=== PATIENT | male | born 1995 | race Caucasian/White ===

== ENCOUNTER → 2018-09-22 12:17 | Outpatient (CLI) | payer OTHER, SELFPAY ==
--- NOTE | 2018-09-22 12:25 | RAD_ITS ---
STUDY: X-RAY - RIGHT WRIST REASON FOR EXAM: Male, 23 years old. Injury TECHNIQUE: 3 view(s) of the wrist were obtained. COMPARISON: None. FINDINGS: There is no evidence of fracture or dislocation. There are no significant degenerative changes. There are no radiodense foreign bodies. RAD/Wrist min 3 Views IMPRESSION: No fracture or dislocation. Electronically Signed: Sd [place], at 17:04 EDT Tel , Service support ,
--- NOTE | 2018-09-22 12:26 | RAD_ITS ---
STUDY: X-RAY - RIGHT RADIUS AND ULNA REASON FOR EXAM: Male, 23 years old. Pain TECHNIQUE: 2 view(s) of the forearm. COMPARISON: None. FINDINGS: There is no evidence of fracture or dislocation. There are no significant degenerative changes. There are no radiodense foreign bodies. RAD/Forearm 2 Views IMPRESSION: No fracture or dislocation. Electronically Signed: Sd River, at 17:03 EDT Tel , Service support ,
--- NOTE | 2018-09-22 12:26 | RAD_ITS ---
STUDY: X-RAY - RIGHT HAND REASON FOR EXAM: Male, 23 years old. Injury TECHNIQUE: 3 view(s) of the hand. COMPARISON: None. FINDINGS: There is no evidence of fracture or dislocation. There are no significant degenerative changes. There are no radiodense foreign bodies. RAD/Hand Min 3 Views IMPRESSION: No fracture or dislocation. Electronically Signed: Sd River, at 17:05 EDT Tel , Service support ,
== END ==
PROVIDERS: Family Provider Family Medicine; PCP Family Medicine; Referring Provider Nurse Practitioner Family; Visit Provider Nurse Practitioner Family
DX: S69.91XA Unspecified injury of right wrist, hand and finger(s), initial encounter (principal); X58.XXXA Exposure to other specified factors, initial encounter
CPT/HCPCS: 73090; 73110; 73130

== ENCOUNTER → 2020-12-28 10:26 | Outpatient (CLI) | payer OTHER, SELFPAY | PROVIDERS: PCP Family Medicine; Referring Provider Physician Assistant; Visit Provider Physician Assistant | DX: U07.1 COVID-19 (principal) | CPT/HCPCS: 87635; U0005; U0003 ==

== ENCOUNTER 2022-04-20 15:22 | Emergency (ER) | payer OTHER, SELFPAY ==
[2022-04-20 15:24] VITALS: BP 161/93; PULSE 84; RESP 16; TEMP 36.6; O2SAT 99; BMI 32.0
[2022-04-20 16:07] LABS: Absolute Lymphocyte Count 2.03 X10^3/uL (0.83-4.51); Basophil# 0.06 X10^3/uL; Basophil% 0.9 % (0-1); Eosinophil# 0.17 X10^3/uL; Eosinophils% 2.5 % (0-5); Hematocrit 46.2 % (40-54); Hemoglobin 16.5 g/dL (13.0-16.5); Lymphocyte # 2.03 X10^3/ul (0.83-4.51); Lymphocyte % 30.2 % (19-41); Mean Corp Hgb Conc 35.7 g/dL (32-36); Mean Corpuscular Hgb 31.7 pg (27.0-32.0); Mean Corpuscular Volume 88.8 fL (80-94); Mean Platelet Vol. 9.1 fl (6.2-12.0); Monocyte# 0.48 X10^3/uL; Monocyte% 7.1 % (0-10); NRBC Flagged by Analyzer 0 % (0-5); Neutrophil # 3.95 X10^3/uL (2.7-7.7); Neutrophil % 58.9 % (47-70); Platelet Count 183 K/mm3 (150-450); RBC Distribution Width CV 12.1 % (11.6-14.6); RBC Distribution Width SD 39.2 fl (35.1-43.9); White Blood Count 6.7 K/mm3 (4.4-11.0)
[2022-04-20 16:27] LABS: Anion Gap 8 (5-15); BUN 16 mg/dL (7-18); BUN/Creat Ratio 12.8 RATIO (10-20); Calcium,Total 9.5 mg/dL (8.5-10.1); Chloride 103 mmol/L (98-107); Creatinine, Serum 1.25 mg/dL (0.70-1.30); EST Glomerular Filtration Rate 73 mL/min (>60); Est Glom Filt Rate - Afr Amer 88 mL/min (>60); Estimated Creatinine Clearance 90.84 ml/min; Glucose 98 mg/dL (74-106); Sodium Level 138 mmol/L (136-145)
[2022-04-20] MEDS: Meclizine HCl 25 MG Tablet PO (16:39)
[2022-04-20 16:42] VITALS: BP 142/70; BP 144/81; BP 147/83; PULSE 78; PULSE 82; PULSE 90
[2022-04-20 16:49] LABS: AST(SGOT) 23 U/L (15-37); Alanine Aminotransfer ALT/SGPT 42 U/L (16-61); Albumin, Serum 4.3 g/dL (3.2-5.0); Alkaline Phosphatase 64 U/L (45-117); Bilirubin, Direct 0.14 mg/dL (0.00-0.30); Globulin 3.4 g/dL (2.2-4.2); Lipase 101 U/L (73-393); Protein, Total 7.7 g/dL (6.4-8.2)
[2022-04-20 17:31] LABS: Bacteria 0 SEEN /hpf (None Seen); Mucous, Urine 0 SEEN /hpf (<or=2+); Red Blood Cells-Urine 0 SEEN /hpf (0-5); Squamous Epithelial Cells - UA 0 SEEN /hpf (0-5); White Blood Cells 0 SEEN /hpf (0-5)
[2022-04-20 17:45] LABS: Color, Urine Yellow (Yellow); Glucose, Dipstick Normal (Normal); Ketone-Dipstick Negative (Negative); Leukocyte Esterase-Dipstick Negative /ul (Negative); Nitrite-Dipstick Negative (Negative); Occult Blood-Urine Negative /ul (Negative); Protein-Dipstick Negative (Negative); Specific Gravity, Urine 1.005 (1.002-1.030); Urine Bilirubin Dipstick Negative (Negative); Urine Clarity Clear (Clear); Urine Urobilinogen Normal (Normal)
--- NOTE | 2022-04-20 19:52 | EDS_ITS ---
HPI HPI - GI History of Present Illness Chief Complaint: Abd Pain Informant: patient Abdominal Pain/Flank Pain Onset: Today Context: Gradual Onset Timing: Intermittent Quality: Dull Location: Epigastric Worsened by: Nothing Relieved by: Nothing Nausea/Vomiting/Emesis GI Symptom: Negative for Nausea or Vomiting Diarrhea/Melena/Hematochezia GI Symptom: Negative for Diarrhea, Melena or Hematochezia Associated Symptoms Associated Symptoms: Negative for Dysuria, Frequency or Hematuria Narrative Narrative: Patient presents with epigastric abdominal pain and dizziness. Patient states this has gradually gotten worse throughout the day today. Patient states his pain is mainly over the epigastric area. Patient describes it as dull. Patient states it comes and goes. Patient denies any nausea or vomiting. Patient denies any diarrhea, melena, or hematochezia. Patient states he feels dizzy. P atient describes this as a fogginess and lightheadedness. Patient states this seems to be worse after eating. Patient admits to some sinus pressure. Patient denies any fevers or chills. Patient admits to a mild headache and some neck pain. Patient admits to a mild sore throat. Patient denies any ear pain or tinnitus. PFSH PFSH Medical History no medical history no medical history Home Medications meclizine 25 mg tablet 25 mg PO 4X/DAY PRN PRN Dizziness #20 tabs 04/20/22 [Rx Last Taken Unknown] Allergy/AdvReac Type Severity Reaction Status Date / Time No Known Allergies Allergy Verified 04/20/22 16:23 Family History no significant family his Surgical History no surgical history no surgical history Social History Smoking Status: Current every day smoker tobacco type: smokeless tobacco ROS ROS ED Constitutional Constitutional ED: Denies chills or fever(s) Eyes Eyes: Denies blurry vision or change in vision ENT ENT ED: Reports sore throat; Denies rhinorrhea Cardiovascular Cardiovascular: Denies chest pain or palpitations Respiratory/Chest Respiratory/Chest: Denies cough or dyspnea Gastrointestinal Gastrointestinal: Denies nausea or vomiting Genitourinary Genitourinary ED: Denies dysuria or hematuria Musculoskeletal Musculoskeletal: Reports neck pain; Denies back pain Integumentary Denies abscess or rash Neurologic Neurologic: Reports headache(s); Denies weakness Allergic/Immunologic Allergic/Immunologic ED: Denies mouth swelling or urticaria EXAM Physical Exam Const Vital Signs: 04/20/22 15:24 04/20/22 16:42 Temperature 98 F Temperature Source Temporal Pulse Rate 84 Pulse Rate [Lying] 78 Pulse Rate [Sitting (for 1 minute prior to obtaining)] 82 Pulse Rate [Standing (for 1 minute prior to obtaining)] 90 Respiratory Rate 16 Blood Pressure 161/93 H Blood Pressure [Lying] 142/70 H Blood Pressure [Sitting (for 1 minute prior to obtaining)] 144/81 H Blood Pressure [Standing (for 1 minute prior to obtaining)] 147/83 H Blood Pressure Mean 115 Blood Pressure Mean [Lying] 94 Blood Pressure Mean [Sitting (for 1 minute prior to obtaining)] 102 Blood Pressure Mean [Standing (for 1 minute prior to obtaining)] 104 Pulse Ox 99 Oxygen Delivery Method Room Air Positive well nourished and well developed General Appearance ED: well developed HEENT Reports moist mucous membranes Neck supple and no JVD Resp normal respiratory effort and clear to auscultation bilaterally Cardio regular rate, regular rhythm and no murmurs GI normal to inspection, nondistended, normoactive bowel sounds Palpation: soft and tender epigastric (Mild); Negative for guarding or rebound tenderness present Extremity normal to inspection General Extremety ED: Negative for edema or tenderness General Extremity: Negative for edema Neuro oriented x3, CN's II-XII intact bilaterally and no sensory deficits noted Sensorium / Orientation: alert Motor Exam: strength 5/5 throughout Psych mental status grossly normal Skin no rashes or lesions noted MDM MDM MDM Narrative Medical decision making narrative: Differential diagnosis includes gastritis, pancreatitis, viral illness, dehydration, ureteral calculus, pyelonephritis, and electrolyte abnormality. CBC will be obtained to assess for leukocytosis and anemia. Basic metabolic profile will be obtained to assess for and electrolyte abnormality. Hepatic profile will be obtained to assess for hepatic function. Lipase will be obtained to assess for pancreatitis. Urinalysis will be obtained to assess for hematuria and urinary tract infection. Lab Data Attestation: I reviewed the patient's lab results. Lab results narrative: CBC was reviewed and was within normal limits. Basic metabolic profile was reviewed and was within normal limits. Hepatic profile was reviewed and was within normal limits. Lipase was reviewed and was within normal limits. Urinalysis was reviewed and was within normal limits. Labs: Laboratory Results - last 24 hr 04/20/22 04/20/22 04/20/22 15:45 15:45 15:45 WBC 6.7 RBC 5.20 Hgb 16.5 Hct 46.2 MCV 88.8 MCH 31.7 MCHC 35.7 RDW Std Deviation 39.2 RDW Coeff of Kim 12.1 Plt Count 183 MPV 9.1 Immature Gran % (Auto) 0.400 Neut % (Auto) 58.9 Lymph % (Auto) 30.2 [place] % (Auto) 7.1 Eos % (Auto) 2.5 Baso % (Auto) 0.9 Absolute Neuts (auto) 4.0 Absolute Lymphs (auto) 2.03 Nucleated RBC % 0 Sodium 138 Potassium 4.0 Chloride 103 Carbon Dioxide 27.0 Anion Gap 8 BUN 16 Creatinine 1.25 Estim Creat Clear Calc 90.84 Est GFR (MDRD) Af Amer 88 Est GFR (MDRD) Non-Af 73 BUN/Creatinine Ratio 12.8 Glucose 98 Calcium 9.5 Total Bilirubin 0.50 Direct Bilirubin 0.14 AST 23 ALT 42 Alkaline Phosphatase 64 Total Protein 7.7 Albumin 4.3 Globulin 3.4 Lipase 101 Urine Color Urine Clarity Urine pH Ur Specific [place] Urine Protein Urine Glucose (UA) Urine Ketones Urine Occult Blood Urine Nitrite Urine Bilirubin Urine Urobilinogen Ur Leukocyte Esterase Urine RBC Urine WBC Ur Squamous Epith Cells Urine Bacteria Urine Mucus 04/20/22 17:25 WBC RBC Hgb Hct MCV MCH MCHC RDW Std Deviation RDW Coeff of Kim Plt Count MPV Immature Gran % (Auto) Neut % (Auto) Lymph % (Auto) [place] % (Auto) Eos % (Auto) Baso % (Auto) Absolute Neuts (auto) Absolute Lymphs (auto) Nucleated RBC % Sodium Potassium Chloride Carbon Dioxide Anion Gap BUN Creatinine Estim Creat Clear Calc Est GFR (MDRD) Af Amer Est GFR (MDRD) Non-Af BUN/Creatinine Ratio Glucose Calcium Total Bilirubin Direct Bilirubin AST ALT Alkaline Phosphatase Total Protein Albumin Globulin Lipase Urine Color Yellow Urine Clarity Clear Urine pH 7.0 Ur Specific [place] 1.005 Urine Protein Negative Urine Glucose (UA) Normal Urine Ketones Negative Urine Occult Blood Negative Urine Nitrite Negative Urine Bilirubin Negative Urine Urobilinogen Normal Ur Leukocyte Esterase Negative Urine RBC 0 SEEN Urine WBC 0 SEEN Ur Squamous Epith Cells 0 SEEN Urine Bacteria 0 SEEN Urine Mucus 0 SEEN Treatment and Re-Evaluation :: Patient was given a dose of meclizine here. Patient is feeling better on reevaluation. Patient was advised of his findings. Patient was given a prescription for meclizine to take as needed for dizziness. Patient was instructed to follow-up with his primary care physician in 5 to 7 days. Patient understood and was agreeable with the plan. All questions were answered. Discharge Plan Triage Chief Complaint: Abd Pain Other Complaint: Chest Other Dizziness ED Provider: Te Sharp Dx/Rx/DC Orders Clinical Impression: Dizziness, nonspecific, Epigastric abdominal pain Instructions: ED Dizziness, Uncertain Cause, ED Abdominal Pain Unkn Cause Male... Prescriptions: New meclizine [meclizine] 25 mg tablet 25 mg PO 4X/DAY PRN PRN (Reason: Dizziness) Qty: 20 0RF Primary Care Provider: Raghav Richard Referrals: Raghav Richard MD [Primary Care Provider] - 5-7 Days Disposition Disposition: Home, Self Care
[2022-04-20 20:12] VITALS: BP 120/44; PULSE 74; RESP 15; O2SAT 98
== END 2022-04-20 20:13 | disposition home or self-care (01) ==
PROVIDERS: Emergency Provider Emergency Medicine; PCP Family Medicine; Visit Provider Emergency Medicine
DX: R42 Dizziness and giddiness (principal); R10.13 Epigastric pain; F17.220 Nicotine dependence, chewing tobacco, uncomplicated
CPT/HCPCS: 80048; 80076; 81001; 83690; 85025; 99284; A4216

== ENCOUNTER 2022-05-17 14:02 | Emergency (ER) | payer OTHER, SELFPAY ==
[2022-05-17 14:02] VITALS: BP 149/88; PULSE 82; RESP 18; TEMP 36.8; O2SAT 100; BMI 32.1
--- NOTE | 2022-05-17 14:15 | CT_ITS ---
STUDY: CT BRAIN WITHOUT CONTRAST REASON FOR EXAM: Male, 26 years old. dizziness, headache TECHNIQUE: Transaxial CT imaging of the brain was performed without administration of intravenous contrast material. Individualized dose optimization techniques were used for this CT. COMPARISON: None FINDINGS: Normal calvarium. Normal soft tissues. Normal size ventricles and extra-axial spaces for the patient''s age. Normal white matter tracts of the cerebral hemispheres. Normal basal ganglia and thalami. Normal brainstem. Normal cerebellum. There is no intracranial hemorrhage. There are no findings of an acute ischemic infarction. There is sinus disease. ASPECTS 10 CT/Brain/Head without Contrast IMPRESSION: There are no acute intracranial findings. Electronically Signed: Talha Eddy MD at 16:20 EDT ,
--- NOTE | 2022-05-17 14:15 | EKG12_ITS ---
Test Reason : DIZZY Blood Pressure : / mmHG Vent. Rate : 077 BPM Atrial Rate : 077 BPM P-R Int : 130 ms QRS Dur : 084 ms QT Int : 362 ms P-R-T Axes : 054 058 036 degrees QTc Int : 409 ms Normal sinus rhythm Normal ECG Confirmed by RICHIE HERRERA, MANUEL ([id number]), department editor MARIANO PINTO ([id number]) on 05/21/2022 10:48:39 AM Referred By: PATRICK Confirmed By:JUAN CARLOS QUIROZ MD
--- NOTE | 2022-05-17 14:16 | US_ITS ---
STUDY: ABDOMINAL ULTRASOUND - RIGHT UPPER QUADRANT REASON FOR VISIT: Male, 26 years old epigastric ruq pain TECHNIQUE: Ultrasound evaluation of the right upper quadrant was performed with real-time and static lowry-scale imaging. TECHNICAL QUALITY: Adequate. COMPARISON: None. FINDINGS: Liver: The liver measures 15.7 cm. There is normal echogenicity of the liver. The bile ducts are within normal limits. There is hepatic color flow. The direction of portal flow is hepatopetal. There is no demonstrated mass lesion. Gallbladder: Normal distended gallbladder. The gallbladder wall measures 1.7 mm. There is a negative sonographic Ramirez''s sign. There is no pericholecystic fluid. There are no gallstones. Common Bile Duct (C.B.D.): The common bile duct measures 3.1 mm. Pancreas: Normal size of the head, body and tail of the pancreas. There is normal echogenicity of the pancreas. There is no demonstrated pancreatic mass or cyst. Right Kidney: Normal size of the right kidney. The right kidney measures 11.1 x 5.9 x 5.1 cm. Normal renal cortex. The right cortex measures 1.5 cm. There is a suggestion of possible small cyst upper pole right kidney measuring 1.2 cm. There is no right hydronephrosis. US/Gallbladder IMPRESSION: No visualized gallstones. The sonographic Ramirez''s sign is described as negative. There is no visualized hydronephrosis. Small cyst right kidney versus prominent calyx.. Electronically Signed: Ale Linda MD at 15:49 EDT ,
--- NOTE | 2022-05-17 14:17 | EX.ED.DYSGE1 ---
HPI History of Present Illness Chief Complaint: Abd Pain Detail of Chief Complaint: Abdominal pain and dizziness Informant: patient Narrative Narrative: Patient presents to the emergency department complaint of abdominal pain that he said for about 3 weeks. Patient states that he just always feels like he has an upset stomach. He also has been feeling lightheaded and dizzy. Patient describes it like when someone were to stand up too quickly. Patient has been on antibiotics and steroids for suspected sinus infection but that did not seem to make any difference in his symptoms. Patient was seen by nurse practitioner yesterday and ordered lab work-up and gallbladder ultrasound to be performed tomorrow. Patient states that today he was at work and just was feeling lightheaded and did not feel like he could do his job. Patient denies any syncope. He denies falls or head injuries. Denies fever. He has had no vomiting. The abdominal pain seems to be made worse by eating. PFSH PFSH Medical History no medical history Home Medications meclizine 25 mg tablet 25 mg PO 4X/DAY PRN PRN Dizziness #20 tabs 04/20/22 [Rx Last Taken Unknown] prednisone 20 mg tablet 20 mg PO 05/17/22 [History Last Taken Unknown] Allergy/AdvReac Type Severity Reaction Status Date / Time No Known Allergies Allergy Verified 05/17/22 14:04 Surgical History no surgical history Social History Smoking Status: Current every day smoker tobacco type: smokeless tobacco ROS ROS ED Review of Systems ROS Unobtainable: other Constitutional Constitutional ED: Reports lethargy; Denies chills, fever(s), sweats or weight loss Eyes Eyes: Denies blurry vision, change in vision or diplopia ENT ENT ED: Denies rhinorrhea or sore throat Cardiovascular Cardiovascular: Denies chest pain, orthopnea or racing heartbeat Respiratory/Chest Respiratory/Chest: Denies cough, dyspnea, dyspnea on exertion, orthopnea or sputum Gastrointestinal Gastrointestinal: Reports abdominal pain and nausea; Denies diarrhea or vomiting Genitourinary Genitourinary ED: Denies dysuria, hematuria or urinary frequency Musculoskeletal Musculoskeletal: Denies arthralgias, back pain, myalgias or neck pain Integumentary Denies abscess, Abrasions or rash Neurologic Neurologic: Reports headache(s) and other Details: Dizziness ; Denies weakness Psychiatric Psychiatric: Denies anxiety, depression or suicidal thoughts Endocrine Endocrinology: Denies polydipsia, polyphagia or polyuria Hematologic/Lymphatic Hematologic/Lymphatic: Denies easy bleeding, easy bruising or lymphadenopathy Allergic/Immunologic Allergic/Immunologic ED: Denies mouth swelling, tongue swelling or urticaria EXAM Physical Exam Const Vital Signs: 05/17/22 14:02 Temperature 98.3 F Temperature Source Temporal Pulse Rate 82 Respiratory Rate 18 Blood Pressure 149/88 H Blood Pressure Mean 108 Pulse Ox 100 Oxygen Delivery Method Room Air Positive well nourished and well developed General Appearance ED: well developed and NAD HEENT Reports TM's clear and moist mucous membranes normocephalic and atraumatic; Negative for trauma or tenderness Tympanic Membrane ED: Yes TM's clear Eyes PERRL and EOMs intact bilaterally General Eye ED: Negative for pale conjunctiva or scleral icterus Neck no lymphadenopathy, supple and no JVD General: Negative for tenderness Chest Wall inspection of chest normal and palpation of chest normal Chest: Negative for tenderness Resp normal respiratory effort and clear to auscultation bilaterally Effort and Inspection: Negative for respiratory distress or pain with movement Auscultation: Negative for rhonchi, wheezes or diminished lung sounds Cardio regular rate, regular rhythm, S1 normal heart sound, S2 normal heart sound and no murmurs Peripheral Pulses: pulses 2+ throughout GI normal to inspection, nondistended, normoactive bowel sounds, soft to palpation, non-tender, non-distended and no masses GI Narrative: Mild tenderness over the right upper quadrant and epigastric region. Patient has a mild tenderness over the left lower quadrant. There is no rebound, rigidity, or. Signs. Negative Ramirez sign. Back/Spine no CVA tenderness and no thoracic nor lumbar tenderness Extremity normal to inspection General Extremety ED: Negative for edema General Extremity: Negative for edema Neuro oriented x3, CN's II-XII intact bilaterally, no sensory deficits noted and gait normal Neuro Narrative: Hallpike maneuver performed was negative for nystagmus and could not reproduce his symptoms of dizziness. Sensorium / Orientation: awake, alert, oriented to person, oriented to place and oriented to time Motor Exam: strength 5/5 throughout and strength abnormal Psych mental status grossly normal Skin no rashes or lesions noted and no wounds MDM MDM MDM Narrative Medical decision making narrative: Patient presents with multiple complaints of abdominal pain as well as lightheadedness and nausea. Because of the continued lightheadedness and the fact that treatment with antibiotics and steroids did not help his symptoms we did obtain a CT scan of the brain without contrast that was unremarkable. CBC with differential was normal. Chemistries and LFTs were normal. EKG obtained showed a sinus rhythm with a rate of 77 bpm with no acute ST segment changes. Urinalysis was normal. Gallbladder ultrasound was normal. Orthostatic vital signs were negative. At this time etiology of his abdominal pain unclear. He has been under increased stress related to new child and issues with his dwelling and initial health concerns with and depression and currently his young child not sleeping much. Some of his symptoms may be related to stress or anxiety. GI symptoms unclear he has been on omeprazole he is to continue that. He will follow-up with GI on-call Dr. Davison. Patient will be discharged to home and advised to return if increasing abdominal pain, fever, vomiting, or condition should worsen anyway. Lab Data Labs: Laboratory Results - last 24 hr 05/17/22 05/17/22 05/17/22 14:30 14:30 15:36 WBC 6.2 RBC 5.32 Hgb 16.6 H Hct 47.4 MCV 89.1 MCH 31.2 MCHC 35.0 RDW Std Deviation 40.3 RDW Coeff of Kim 12.3 Plt Count 190 MPV 8.5 Immature Gran % (Auto) 0.300 Neut % (Auto) 58.6 Lymph % (Auto) 32.1 [place] % (Auto) 5.8 Eos % (Auto) 2.4 Baso % (Auto) 0.8 Absolute Neuts (auto) 3.6 Absolute Lymphs (auto) 1.98 Nucleated RBC % 0 Sodium 138 Potassium 4.1 Chloride 105 Carbon Dioxide 28.0 Anion Gap 5 BUN 19 H Creatinine 1.13 Estim Creat Clear Calc 100.49 Est GFR (MDRD) Af Amer 99 Est GFR (MDRD) Non-Af 82 BUN/Creatinine Ratio 16.8 Glucose 97 Calcium 9.2 Total Bilirubin 0.40 AST 22 ALT 55 Alkaline Phosphatase 69 Total Protein 7.1 Albumin 3.9 Globulin 3.2 Albumin/Globulin Ratio 1.2 Urine Color Yellow Urine Clarity Clear Urine pH 6.5 Ur Specific [place] 1.015 Urine Protein Negative Urine Glucose (UA) Normal Urine Ketones Negative Urine Occult Blood Negative Urine Nitrite Negative Urine Bilirubin Negative Urine Urobilinogen Normal Ur Leukocyte Esterase Negative Urine RBC 0 SEEN Urine WBC 0 SEEN Ur Squamous Epith Cells 0 SEEN Urine Bacteria 0 SEEN Urine Mucus 0 SEEN Radiography Diagnostic Testing: Clinical Impression(s) from Imaging Studies Brain CT 05/17/22 14:15 IMPRESSION: There are no acute intracranial findings. Electronically Signed: Talha Eddy MD at 16:20 EDT , Gallbladder Ultrasound 05/17/22 14:16 IMPRESSION: No visualized gallstones. The sonographic Ramirez''s sign is described as negative. There is no visualized hydronephrosis. Small cyst right kidney versus prominent calyx.. Electronically Signed: Ale Linda MD at 15:49 EDT , EKG Initial EKG: Attestation: I personally reviewed and interpreted this EKG as follows: Comments: Sinus rhythm with a rate of 77 bpm with no acute ST segment changes Discharge Plan Triage Chief Complaint: Abd Pain ED Provider: Jens Mendoza Dx/Rx/DC Orders Clinical Impression: Dizziness, Abdominal pain Instructions: ED Dizziness, Uncertain Cause, ED Abdominal Pain Unkn Cause Male... Prescriptions: No Action meclizine [meclizine] 25 mg tablet 25 mg PO 4X/DAY PRN PRN (Reason: Dizziness) Qty: 20 0RF prednisone 20 mg tablet 20 mg PO Primary Care Provider: Raghav Richard Referrals: Raghav Richard MD [Primary Care Provider] - Bhavesh Davison DO [Med Staff - Active Staff] - 3-5 Days Disposition Disposition: Home, Self Care
[2022-05-17 14:36] LABS: Absolute Lymphocyte Count 1.98 X10^3/uL (0.83-4.51); Absolute Neutrophil Count 3.6 X10^3/uL (2.0-7.7); Basophil# 0.05 X10^3/uL; Basophil% 0.8 % (0-1); Eosinophil# 0.15 X10^3/uL; Eosinophils% 2.4 % (0-5); Hematocrit 47.4 % (40-54); Hemoglobin 16.6 g/dL (13.0-16.5); Lymphocyte # 1.98 X10^3/ul (0.83-4.51); Lymphocyte % 32.1 % (19-41); Mean Corpuscular Hgb 31.2 pg (27.0-32.0); Mean Corpuscular Volume 89.1 fL (80-94); Mean Platelet Vol. 8.5 fl (6.2-12.0); Monocyte# 0.36 X10^3/uL; Monocyte% 5.8 % (0-10); NRBC Flagged by Analyzer 0 % (0-5); Neutrophil # 3.61 X10^3/uL (2.7-7.7); Neutrophil % 58.6 % (47-70); Platelet Count 190 K/mm3 (150-450); RBC Distribution Width CV 12.3 % (11.6-14.6); RBC Distribution Width SD 40.3 fl (35.1-43.9); Red Blood Count 5.32 M/mm3 (4.6-6.2); White Blood Count 6.2 K/mm3 (4.4-11.0)
[2022-05-17] MEDS: 0.9% Normal Saline 1,000 ML 125 ML IV (14:37)
[2022-05-17 14:52] LABS: ALB/GLOB Ratio 1.2 RATIO (0.9-2.4); AST(SGOT) 22 U/L (15-37); Alanine Aminotransfer ALT/SGPT 55 U/L (16-61); Albumin, Serum 3.9 g/dL (3.2-5.0); Alkaline Phosphatase 69 U/L (45-117); Anion Gap 5 (5-15); BUN 19 mg/dL (7-18); BUN/Creat Ratio 16.8 RATIO (10-20); Calcium,Total 9.2 mg/dL (8.5-10.1); Chloride 105 mmol/L (98-107); Creatinine, Serum 1.13 mg/dL (0.70-1.30); EST Glomerular Filtration Rate 82 mL/min (>60); Est Glom Filt Rate - Afr Amer 99 mL/min (>60); Estimated Creatinine Clearance 100.49 ml/min; Globulin 3.2 g/dL (2.2-4.2); Glucose 97 mg/dL (74-106); Potassium 4.1 mmol/L (3.5-5.1); Protein, Total 7.1 g/dL (6.4-8.2); Sodium Level 138 mmol/L (136-145)
[2022-05-17 15:41] LABS: Bacteria 0 SEEN /hpf (None Seen); Mucous, Urine 0 SEEN /hpf (<or=2+); Red Blood Cells-Urine 0 SEEN /hpf (0-5); Squamous Epithelial Cells - UA 0 SEEN /hpf (0-5); White Blood Cells 0 SEEN /hpf (0-5)
[2022-05-17 15:47] LABS: Color, Urine Yellow (Yellow); Glucose, Dipstick Normal (Normal); Ketone-Dipstick Negative (Negative); Leukocyte Esterase-Dipstick Negative /ul (Negative); Nitrite-Dipstick Negative (Negative); Occult Blood-Urine Negative /ul (Negative); Protein-Dipstick Negative (Negative); Specific Gravity, Urine 1.015 (1.002-1.030); Urine Bilirubin Dipstick Negative (Negative); Urine Clarity Clear (Clear); Urine Urobilinogen Normal (Normal); Urine pH 6.5 (5.0 - 8.0)
[2022-05-17 16:38] VITALS: BP 126/99; BP 127/82; BP 130/70; BP 134/77; PULSE 62; PULSE 70; PULSE 85; PULSE 92; RESP 15; O2SAT 98
== END 2022-05-17 16:39 | disposition home or self-care (01) ==
PROVIDERS: Emergency Provider Emergency Medicine; PCP Family Medicine; Visit Provider Emergency Medicine
DX: R42 Dizziness and giddiness (principal); R10.9 Unspecified abdominal pain; F17.220 Nicotine dependence, chewing tobacco, uncomplicated
CPT/HCPCS: 70450; 76705; 80053; 81001; 85025; 93005; 99283; A4216

== ENCOUNTER 2022-07-10 12:36 | Emergency (ER) | payer OTHER, SELFPAY ==
[2022-07-10 12:37] VITALS: BP 143/87; PULSE 95; RESP 16; TEMP 37; O2SAT 97; BMI 31.5
--- NOTE | 2022-07-10 13:20 | ED.RN ---
PT'S STATES HE DON'T FEEL LIKE WAITING ANYMORE, STATES HE'S GOING TO LEAVE. PT AMBULATED OUT OF DEPT WITHOUT DIFFICULTY.
== END 2022-07-10 13:15 | disposition left against medical advice (07) ==
LOC: ED 13:56
PROVIDERS: PCP Family Medicine
DX: R69 Illness, unspecified (principal)

== ENCOUNTER 2022-07-31 11:53 | Day surgery (SDC) | payer OTHER, SELFPAY ==
[2022-07-31 10:04] VITALS: BP 125/62; BP 129/70; PULSE 59; RESP 16; TEMP 36.6; O2SAT 100
[2022-07-31] MEDS: Lactated Ringers 1,000 ML 15 ML IV (12:18)
[2022-07-31 12:20] VITALS: BP 129/70; PULSE 54; RESP 17; TEMP 36.6; O2SAT 94; BMI 31.1
--- NOTE | 2022-07-31 13:00 | IMM_PTH ---
PATIENT: JOSE LOWRY III LOC: EN U#:[id number] AGE/SX: 26/M ROOM: RE07/31/[address]: Dr. Bhavesh Davison DO : 1995 BED: DIS: 07/31/2022 SPEC #: [id number] RECD: 08/01/22 12:50 STATUS: BRAN REQ #: [id number] SREEDHAR: 07/31/22 13:[address]: Bhavesh Davison DEPT: IMMUNOHISTOCHEMISTRY RECD BY: Toshia Clarke ENTERED: 08/01/22 12:50 SP TYPE: IMMUNO OTHR DR: Dr. Benjamin Richard MD Tissues: B - Stomach, NOS Procedures: H Pylori (initial) PHYSICIAN & INSTITUTION [place] [id number] SPECIMEN INFORMATION: Tissue Source: B ? Gastric antrum Clinical Info: Acid reflux, dysphagia Specimen Number: [id number] CPT code: 93386 METHODOLOGY: Deparaffinized sections of prefer/formalin-fixed tissue or PAP/DQ stained slides are incubated with monoclonal/polyclonal antibodies/oligonucleotide probes. Localization is made via biotin free immunoperoxidase method. Appropriate controls are performed and reacted as expected. Results on target cell population are indicated in the following table: RESULTS: ANTIBODY / CLONE RESULT Block B H Pylori (polyclonal) negative These tests were developed and their performance characteristics determined by [facility]. They may not have been cleared or approved by the [place]. Food and Drug Administration. The FDA has determined that such clearance or approval is not necessary. The above immunohistochemical/dualISH markers are ordered and reviewed by the Pathologist. INTERPRETATION: B. Gastric antrum, biopsy: Negative for Helicobacter pylori organisms. SJ:samuel 08/02/2022
--- NOTE | 2022-07-31 13:00 | EGD_PTH ---
PATIENT: JOSE LOWRY III LOC: EN U#:[id number] AGE/SX: 26/M ROOM: RE07/31/[address]: Dr. Bhavesh Davison DO : 1995 BED: DIS: 07/31/2022 SPEC #: [id number] RECD: 07/31/22 14:46 STATUS: BRAN TEO #: [id number] SREEDHAR: 07/31/22 13:[address]: Bhavesh Davison DEPT: SURGICAL PATHOLOGY RECD BY: Reji Mckee ENTERED: 08/01/22 11:33 SP TYPE: EGD BIOPSY OT DR: Dr. Benjamin Richard MD Tissues: A - Duodenum, NOS B - Gastric mucous membrane C - Gastric mucous membrane D - Esophagus, NOS Procedures: Special Stain Group II Surgery Specimen Level IV Alcian Blue/PAS (control) HEADER OPERATION: EGD ([facility]), biopsy PRE-OP DIAGNOSIS: Acid reflux, dysphagia TISSUE SUBMITTED: A ? Duodenum biopsy, B ? Gastric antrum biopsy, H. pylori and path, C ? Gastric cardia biopsy, D ? Distal esophagus biopsy MICROSCOPIC DIAGNOSIS A. Duodenum, biopsy: A fragment of duodenal mucosa, no pathologic diagnosis. B. Gastric antrum, biopsy: Moderate gastritis. See microscopic description and comment. C. Gastric cardia, biopsy: Moderate gastritis. See microscopic description. D. Distal esophagus, biopsy: Fragments of gastroesophageal mucosa with moderate chronic inflammation. Intestinal metaplasia (goblet cell metaplasia) not identified. See comment. SJ:samuel 08/02/2022 COMMENT B. The results of immunohistochemistry for Helicobacter pylori will be reported separately ([id number]). D. Alcian blue/PAS stain with matched control is used in the evaluation of the specimen. MICROSCOPIC DESCRIPTION Slides are reviewed. B & C. The specimen shows fragments of gastric mucosa with chronic inflammatory cell infiltrates in the lamina propria consisting of lymphocytes and plasma cells, consistent with moderate chronic gastritis. GROSS DESCRIPTION A - Received in fixative is one container labeled with the patient's name and designated biopsy duodenum. The specimen consists of one irregular fragment of light lange soft tissue that measures 0.5 x 0.4 x 0.1 cm. The specimen is totally submitted in one cassette. B - Received in fixative is one container labeled with the patient's name and designated biopsy gastric antrum. The specimen consists of multiple irregular fragments of light lange soft tissue that in aggregate measure 1.0 x 0.3 x 0.1 cm. The specimen is totally submitted in one cassette. C - Received in fixative is one container labeled with the patient's name and designated biopsy gastric cardia. The specimen consists of multiple irregular fragments of light lange soft tissue that in aggregate measure 0.6 x 0.5 x 0.1 cm. The specimen is totally submitted in one cassette. D - Received in fixative is one container labeled with the patient's name and designated biopsy distal esophagus. The specimen consists of two irregular fragments of light lange soft tissue that in aggregate measure 0..8 x 0.4 x 0.1 cm. The specimen is totally submitted in one cassette. / SJ:rg 07/31/2022 TC:3 CPT: 77637 x4, 42975
--- NOTE | 2022-07-31 13:02 | PCM.HP.BLA ---
History and Physical Date of Admission: 07/31/22 JOSE LOWRY, is a 26 M who presents to the office today to establish with Gastroenterology for symptoms that began in 03/2022 including heartburn, dysphagia, stomach cramping Used to be manageable with prn TUMS Acid reflux worse with prednisone which he's taking for sinus issues Sucralfate helps with stomach cramping Tightness in throat, voice is hoarse Sinus pressure, dizziness Notes some difficulty with pills Lots of indigestion, mild nausea, no vomiting RUQ discomfort, cramping feeling--not related to eating Weight--lost about 10 lbs unintentionally Appetite was decreased initially, but now normalizing Infrequent NSAID use 05/17/22 ED visit for abd pain and dizziness. Normal gallbladder US. [place] [facility] last week for sinus issues, on prednisone for that, not helping Tried Pepto Bismol Bowels are fine. No diarrhea, constipation, melena, hematochezia. Has seen ENT--didn't have laryngoscopy Mom has heartburn, dysphagia ROS Const Constitutional: Positive for fatigue and headache(s) ENT ENT: Positive for headache(s) and difficulty swallowing Gastro GI: Positive for abdominal pain, bloating, heartburn, difficulty swallowing and excessive flatus; No belching, change in bowel habits, change in stool character, coffee ground emesis, constipation, cramping, diarrhea, feeling full early, incontinent of stools, Vomiting blood/hematemesis, Blood in stool, loose stools, Black,tarry stools, nausea/dyspepsia, pain with swallowing, vomiting or other Musc Musculoskeletal: Positive for back pain, numbness and tingling; No joint pain Skin Skin: No yellowing of the eye or itchy eyes Neuro Neurology: Positive for headache(s), numbness and tingling Psych Psychiatric: Positive for anxiety and Positive for depression Endo Endocrine: Positive for fatigue Aller/Imm Allergy/Immunologic: No itchy eyes Diogo/Lymp Hematologic/Lymphatic: No easy bleeding or easy bruising Exam Const General: cooperative, healthy appearing and anxious Orientation: alert, awake and oriented x3 HENMT Head: normal to inspection Eyes Sclera: sclerae normal Neck Neck: normal visual inspection Resp Effort & Inspection: normal respiratory effort GI Inspection: normal to inspection Palpation: soft, no hepatosplenomegaly, no masses and tender in the epigastrum, in the LLQ and in the RLQ Skin General: no rashes or lesions noted Quality Reporting Tobacco Screening ([facility] 138) Smoking Status: Current every day smoker Assessment and Plan Assessment and Plan (1) Heartburn: ?Status:?Chronic ?Plan: 26 yr old male with 3+ months of heartburn, acid reflux, dysphagia, hoarse voice, indigestion, sinus pressure, dizziness. Slight improvement in dizziness on prednisone, but increased GI symptoms. Feels better on sucralfate, has liquid but will be traveling. Rx pantoprazole 40 mg QAM, rx sucralfate pills. Schedule EGD to eval for reflux esophagitis, EOE, gastritis, PUD, bile reflux. f/u office 2 wks later to discuss results. (2) Dysphagia: ?Status:?Chronic ?Plan: see above ? ? ? Medications: New pantoprazole 40 mg? PO QAM 90 tabs 1RF ? ? sucralfate 1 g? PO QACHS 120 tabs 0RF ? ? I have examined the patient and the H&P has been reviewed. There are no clinical changes since date of exam.
[2022-07-31 13:49] VITALS: BP 122/65; BP 129/70; PULSE 67; RESP 17; TEMP 36.5; O2SAT 98
[2022-07-31 13:55] VITALS: BP 125/67; BP 129/70; PULSE 65; RESP 16; O2SAT 100
--- NOTE | 2022-07-31 13:55 | OP.EGD_ITS ---
Patient Name: Stewart Tate Procedure Date: 07/31/2022 1:25 PM Date of : 1995 Age: 26 Procedure: Upper GI endoscopy Indications: Dysphagia Providers: Bhavesh Davison DO Medicines: Monitored Anesthesia Care Patient Profile: This is a 26 year old male. Refer to note in patient chart for documentation of history and physical. Patient has symptoms of chronic dysphagia. Complications: No immediate complications. Procedure: Pre-Anesthesia Assessment: - Prior to the procedure, a History and Physical was performed, and patient medications and allergies were reviewed. The patient is competent. The risks and benefits of the procedure and the sedation options and risks were discussed with the patient. All questions were answered and informed consent was obtained. Patient identification and proposed procedure were verified by the physician. Mental Status Examination: normal. Airway Examination: normal oropharyngeal airway and neck mobility. Respiratory Examination: clear to auscultation. Prophylactic Antibiotics: The patient does not require prophylactic antibiotics. Prior Anticoagulants: The patient has taken no previous anticoagulant or antiplatelet agents. After reviewing the risks and benefits, the patient was deemed in satisfactory condition to undergo the procedure. The anesthesia plan was to use monitored anesthesia care (MAC). Immediately prior to administration of medications, the patient was re-assessed for adequacy to receive sedatives. The heart rate, respiratory rate, oxygen saturations, blood pressure, adequacy of pulmonary ventilation, and response to care were monitored throughout the procedure. The physical status of the patient was re-assessed after the procedure. After obtaining informed consent, the endoscope was passed under direct vision. Throughout the procedure, the patient's blood pressure, pulse, and oxygen saturations were monitored continuously. The Endoscope was introduced through the mouth, and advanced to the second part of duodenum. The upper GI endoscopy was accomplished without difficulty. The patient tolerated the procedure well. Scope In: 1:38:04 PM Scope Out: 1:43:46 PM Total Procedure Duration Time 0 hours 5 minutes 42 seconds Findings: LA Grade A (one or more mucosal breaks less than 5 mm, not extending between tops of 2 mucosal folds) esophagitis with no bleeding was found 39 to 40 cm from the incisors. Biopsies were taken with a cold forceps for histology. Verification of patient identification for the specimen was done. Estimated blood loss was minimal. A moderate Schatzki ring was found in the lower third of the esophagus. A guidewire was placed and the scope was withdrawn. Dilation was performed with a Savary dilator with no resistance at 45 Fr. The dilation site was examined and showed complete resolution of luminal narrowing. A small hiatal hernia was present. Patchy mild inflammation characterized by erythema was found in the cardia and in the gastric antrum. Biopsies were taken with a cold forceps for histology. Verification of patient identification for the specimen was done. Estimated blood loss was minimal. Patchy mildly erythematous mucosa without active bleeding and with no stigmata of bleeding was found in the first portion of the duodenum and in the second portion of the duodenum. Biopsies were taken with a cold forceps for histology. Verification of patient identification for the specimen was done. Estimated blood loss was minimal. Impression: - LA Grade A reflux esophagitis. Biopsied. - Moderate Schatzki ring. Dilated. - Small hiatal hernia. - Gastritis. Biopsied. - Erythematous duodenopathy. Biopsied. Recommendation: - Discharge patient to home. - Resume previous diet. - Continue present medications. - Await pathology results. - Repeat upper endoscopy for surveillance. Procedure Code(s): --- Professional --- 10553, Esophagogastroduodenoscopy, flexible, transoral; with insertion of guide wire followed by passage of dilator(s) through esophagus over guide wire 45617, 59, Esophagogastroduodenoscopy, flexible, transoral; with biopsy, single or multiple CPT copyright 2017 [employer]. All rights reserved. The codes documented in this report are preliminary and upon microsoft dynamics ax developer review may be revised to meet current compliance requirements. Bhavesh Davison DO 07/31/2022 1:54:59 PM This report has been signed electronically. Number of Addenda: 0 Note Initiated On: 07/31/2022 1:25 PM
--- NOTE | 2022-07-31 13:55 | OP.CCLET_ITS ---
07/31/2022 Raghav Richard [address] [place] [address] Re : Upper GI endoscopy procedure for Stewart Tate Dear Dr. Richard This procedure was performed on Sunday, July 31, 2022. My impressions and recommendations are as follows: Impressions : - LA Grade A reflux esophagitis. Biopsied. - Moderate Schatzki ring. Dilated. - Small hiatal hernia. - Gastritis. Biopsied. - Erythematous duodenopathy. Biopsied. Recommendations : - Discharge patient to home. - Resume previous diet. - Continue present medications. - Await pathology results. - Repeat upper endoscopy for surveillance. My findings are described in the full procedure note, which is enclosed. If I can be of further assistance, please feel free to contact me at . Sincerely, Bhavesh Davison, 07/31/2022 1:54:59 PM This report has been signed electronically.
[2022-07-31 14:00] VITALS: BP 128/56; BP 129/70; PULSE 67; RESP 16; O2SAT 99
[2022-07-31 14:13] VITALS: BP 129/70
[2022-08-05 11:07] LABS: Alternaria alternata <0.10 kU/L (Class 0); Aspergillus fumigatus <0.10 kU/L (Class 0); Bahia Grass <0.10 kU/L (Class 0); Beef <0.10 kU/L (Class 0); Bermuda Grass <0.10 kU/L (Class 0); Bluegrass, Kentucky <0.10 kU/L (Class 0); Cat Hair/Dander, Standard <0.10 kU/L (Class 0); Cedar, Mountain <0.10 kU/L (Class 0); Chocolate <0.10 kU/L (Class 0); Cladosporium herbarum <0.10 kU/L (Class 0); Clam <0.10 kU/L (Class 0); Cockroach, American <0.10 kU/L (Class 0); Codfish <0.10 kU/L (Class 0); Corn <0.10 kU/L (Class 0); D farinae Mite <0.10 kU/L (Class 0); D pteronyssinus <0.10 kU/L (Class 0); Dog Epithelia <0.10 kU/L (Class 0); Egg, White <0.10 kU/L (Class 0); Egg, Whole <0.10 kU/L (Class 0); Elm, American White <0.10 kU/L (Class 0); Hazelnut Tree <0.10 kU/L (Class 0); Hickory, White <0.10 kU/L (Class 0); Johnson Grass <0.10 kU/L (Class 0); Maple/Box Elder <0.10 kU/L (Class 0); Milk (Cow) <0.10 kU/L (Class 0); Mucor racemosus <0.10 kU/L (Class 0); Mugwort <0.10 kU/L (Class 0); Mulberry, White <0.10 kU/L (Class 0); Nettle <0.10 kU/L (Class 0); Oak, White <0.10 kU/L (Class 0); Peanut <0.10 kU/L (Class 0); Penicillium chrysogen <0.10 kU/L (Class 0); Pigweed, Rough <0.10 kU/L (Class 0); Plantain, English <0.10 kU/L (Class 0); Pork <0.10 kU/L (Class 0); Ragweed, Short/Common <0.10 kU/L (Class 0); SCALLOP <0.10 kU/L (Class 0); SESAME SEED <0.10 kU/L (Class 0); Sheep Sorrel(Dock) <0.10 kU/L (Class 0); Shrimp <0.10 kU/L (Class 0); Soybean <0.10 kU/L (Class 0); Stemphylium herbarum <0.10 kU/L (Class 0); Sweet Gum <0.10 kU/L (Class 0); Sycamore, American <0.10 kU/L (Class 0); Walnut, (Food) <0.10 kU/L (Class 0); Wheat <0.10 kU/L (Class 0)
== END 2022-07-31 14:23 | disposition home or self-care (01) ==
LOC: EN 11:56 → AC 11:58
PROVIDERS: PCP Family Medicine; Referring Provider Family Medicine; Visit Provider Internal Medicine Gastroenterology
PROC: 0DJ08ZZ Inspection of Upper Intestinal Tract, Via Natural or Artificial Opening Endoscopic (ICD-10-PCS; CPT 43235; principal; 2022-07-31 12:55)
DX: K21.00 Gastro-esophageal reflux disease with esophagitis, without bleeding (principal); K22.2 Esophageal obstruction; K44.9 Diaphragmatic hernia without obstruction or gangrene; K29.70 Gastritis, unspecified, without bleeding; K31.89 Other diseases of stomach and duodenum; F17.200 Nicotine dependence, unspecified, uncomplicated; Z79.899 Other long term (current) drug therapy
CPT/HCPCS: 43248; 43239; 36415; 86003; 86005; 88305; 88313; 88342; J7120; J2405

== ENCOUNTER 2022-08-25 21:45 | Emergency (ER) | payer OTHER, SELFPAY ==
[2022-08-25 21:45] VITALS: BP 109/86; PULSE 65; RESP 15; TEMP 36.4; O2SAT 97; BMI 29.9
--- NOTE | 2022-08-25 22:12 | CT_ITS ---
EXAM: CT ABDOMEN AND PELVIS WITH INTRAVENOUS CONTRAST CLINICAL INDICATION: abd pain TECHNIQUE: Helically acquired images were obtained of the abdomen and pelvis with intravenous contrast. This CT exam was performed using one or more of the following dose reduction techniques: automated exposure control, adjustment of the mA and/or kV according to patient size, and/or use of iterative reconstruction technique. CONTRAST: IV 100mL [id number]-370 RADIATION DOSE: Total DLP: 912.69 mGy-cm. COMPARISON: Abdominal ultrasound of 05/17/2022. FINDINGS: LOWER THORAX: Incidental dependent atelectasis noted at the lung bases. No coronary artery calcification is visualized. No significant pericardial effusion. ABDOMEN: LIVER: Unremarkable. Homogeneous. No focal mass. GALLBLADDER AND BILE DUCTS: Unremarkable. No calcified gallstones. No gallbladder distention or wall edema. No intra- or extrahepatic biliary ductal dilation. PANCREAS: Unremarkable. No focal cystic or solid mass. SPLEEN: Unremarkable. Normal size without focal cystic or solid mass. ADRENALS: Unremarkable. No nodules. KIDNEYS AND URETERS: Unremarkable. Normal renal size and position. No hydronephrosis. No renal or obstructing ureteral stones. No perirenal stranding. STOMACH AND BOWEL: Unremarkable. No stomach or bowel distention. No focal inflammatory change. PELVIS: APPENDIX: Not well-seen. No evidence of acute appendicitis. BLADDER: Unremarkable. REPRODUCTIVE: Unremarkable as visualized. No mass. ABDOMEN and PELVIS: INTRAPERITONEAL SPACE: Unremarkable. No ascites or other fluid collection. No free air. BONES/JOINTS: Unremarkable. No suspicious lytic or blastic abnormality. SOFT TISSUES: Unremarkable. No discrete abdominal or pelvic wall hernia. VASCULATURE: Unremarkable. Abdominal aorta is non-dilated. LYMPH NODES: Multiple small lymph nodes are seen within the small bowel mesentery and in the pericecal region. No para-aortic adenopathy. CT/Abdomen/Pelvis W IV Cont ONLY IMPRESSION: Small mesenteric and pericecal lymph nodes, as can be seen with mesenteric adenitis. No other acute abnormality. Electronically Signed: Arpan Al MD at 23:27 EDT ,
[2022-08-25] MEDS: Morphine 4 MG/ML Syringe IV (22:21)
[2022-08-25] MEDS: Ondansetron 4 MG/2 ML Vial IV (22:21)
[2022-08-25 22:22] LABS: Absolute Lymphocyte Count 2.87 X10^3/uL (0.83-4.51); Basophil# 0.07 X10^3/uL; Basophil% 0.9 % (0-1); Eosinophil# 0.27 X10^3/uL; Eosinophils% 3.5 % (0-5); Hematocrit 45.9 % (40-54); Hemoglobin 15.6 g/dL (13.0-16.5); Lymphocyte # 2.87 X10^3/ul (0.83-4.51); Lymphocyte % 37.4 % (19-41); Mean Corpuscular Hgb 30.7 pg (27.0-32.0); Mean Corpuscular Volume 90.4 fL (80-94); Monocyte# 0.48 X10^3/uL; Monocyte% 6.3 % (0-10); NRBC Flagged by Analyzer 0 % (0-5); Neutrophil # 3.95 X10^3/uL (2.7-7.7); Neutrophil % 51.5 % (47-70); Platelet Count 168 K/mm3 (150-450); RBC Distribution Width CV 11.9 % (11.6-14.6); RBC Distribution Width SD 39.8 fl (35.1-43.9); Red Blood Count 5.08 M/mm3 (4.6-6.2); White Blood Count 7.7 K/mm3 (4.4-11.0)
[2022-08-25 22:41] LABS: ALB/GLOB Ratio 1.2 RATIO (0.9-2.4); AST(SGOT) 14 U/L (15-37); Alanine Aminotransfer ALT/SGPT 27 U/L (16-61); Albumin, Serum 3.9 g/dL (3.2-5.0); Alkaline Phosphatase 64 U/L (45-117); Anion Gap 3 (5-15); BUN 21 mg/dL (7-18); BUN/Creat Ratio 15.6 RATIO (10-20); Calcium,Total 9.1 mg/dL (8.5-10.1); Chloride 108 mmol/L (98-107); Creatinine, Serum 1.35 mg/dL (0.70-1.30); EST Glomerular Filtration Rate 66 mL/min (>60); Est Glom Filt Rate - Afr Amer 80 mL/min (>60); Estimated Creatinine Clearance 83.36 ml/min; Globulin 3.2 g/dL (2.2-4.2); Glucose 94 mg/dL (74-106); Lipase 35 U/L (13-75); Protein, Total 7.1 g/dL (6.4-8.2); Sodium Level 139 mmol/L (136-145)
--- NOTE | 2022-08-25 23:48 | EDS_ITS ---
HPI History of Present Illness Chief Complaint: Abd Pain Narrative Narrative: Patient presents with abdominal pain for greater than 1 month. He has seen GI and has been in the ED. He has no fevers or chills, his pain got worse tonight but by time he got to the ED it improved. He has no weight loss, he has no diarrhea he has had some loose stools. He has had an endoscopy which was normal. [facility] Medical History (Updated 08/25/22 @ 23:[address] Mehdi Lynn MD) Alcohol use Anxiety Back pain Gastric reflux History of steroid therapy Injury of back Migraine headache Smoker Syncope Home Medications meclizine 25 mg tablet 25 mg PO 4X/DAY PRN PRN Dizziness #20 tabs 04/20/22 [Rx Last Taken Unknown] pantoprazole 40 mg tablet,delayed release 40 mg PO QAM #90 tabs 07/17/22 [Rx Last Taken Unknown] sucralfate 1 gram tablet 1 g PO QACHS #120 tabs 07/17/22 [Rx Last Taken Unknown] Allergy/AdvReac Type Severity Reaction Status Date / Time No Known Allergies Allergy Verified 08/25/22 21:49 Surgical History No history of previous surgery Social History Smoking Status: Current every day smoker tobacco type: smokeless tobacco ROS ROS ED ROS Narrative Past medical history: Reviewed Medications: Reviewed Social history: Noncontributory Review of systems: All systems negative except as indicated General: No fever Eyes: No visual changes ENT: No upper airway congestion, normal voice Neck: No neck pain Cardiovascular: No chest pain Respiratory: No shortness of breath or cough Gastrointestinal: As in HPI Genitourinary: No dysuria Musculoskeletal: Denies myalgias no difficulty with ambulation Skin: No rash Neurological: No memory loss, confusion or any focal weakness EXAM Physical Exam Narrative Exam Narrative: Physical exam General: Well nourished, Well developed, No Acute Distress Head: Normocephalic, Atraumatic Eyes: Conjunctiva not pale ENT: Moist mucous membranes Neck: Supple, Nontender, No lymphadenopathy Cardiovascular: Regular rate, Regular rhythm Respiratory: No distress, CTA bilaterally Abdomen: Soft abdomen. There is tenderness throughout although there is no guarding or rebound. Back: Nontender, Normal Inspection. Negative for: CVA tenderness Extremities: Nontender, No edema Skin: Normal color, No rash Neurological: Alert, Normal Strength, Normal Sensation Psychological: Normal affect Const Vital Signs: 08/25/22 21:45 Temperature 97.6 F L Temperature Source Temporal Pulse Rate 65 Respiratory Rate 15 Blood Pressure 109/86 H Blood Pressure Mean 93 Pulse Ox 97 Oxygen Delivery Method Room Air MDM MDM MDM Narrative Medical decision making narrative: CBC CMP and lipase were unremarkable. I talked to the patient's also give me part of the history. Patient is found to have mesenteric adenitis on the CT. I do not believe patient meets admission criteria. This is likely all self- limiting and patient will be discharged in stable condition. He has seen Dr. Davison in the past and he can follow-up for possible colonoscopy as needed. Lab Data Labs: Laboratory Results - last 24 hr 08/25/22 22:00 WBC 7.7 RBC 5.08 Hgb 15.6 Hct 45.9 MCV 90.4 MCH 30.7 MCHC 34.0 RDW Std Deviation 39.8 RDW Coeff of Kim 11.9 Plt Count 168 MPV 9.0 Immature Gran % (Auto) 0.400 Neut % (Auto) 51.5 Lymph % (Auto) 37.4 Rosebud % (Auto) 6.3 Eos % (Auto) 3.5 Baso % (Auto) 0.9 Absolute Neuts (auto) 4.0 Absolute Lymphs (auto) 2.87 Nucleated RBC % 0 Sodium 139 Potassium 4.0 Chloride 108 H Carbon Dioxide 28.0 Anion Gap 3 L BUN 21 H Creatinine 1.35 H Estim Creat Clear Calc 83.36 Est GFR (MDRD) Af Amer 80 Est GFR (MDRD) Non-Af 66 BUN/Creatinine Ratio 15.6 Glucose 94 Calcium 9.1 Total Bilirubin 0.40 AST 14 L ALT 27 Alkaline Phosphatase 64 Total Protein 7.1 Albumin 3.9 Globulin 3.2 Albumin/Globulin Ratio 1.2 Lipase 35 Radiography Diagnostic Testing: Clinical Impression(s) from Imaging Studies Abdomen/Pelvis CT 08/25/22 22:12 IMPRESSION: Small mesenteric and pericecal lymph nodes, as can be seen with mesenteric adenitis. No other acute abnormality. Electronically Signed: Arpan Al MD at 23:27 EDT , Discharge Plan Triage Chief Complaint: Abd Pain ED Provider: Mehdi Lynn Dx/Rx/DC Orders Clinical Impression: Mesenteric adenitis, Abdominal pain Instructions: ED Adenitis, Mesenteric Prescriptions: No Action pantoprazole 40 mg tablet,delayed release (DR/EC) 40 mg PO QAM Qty: 90 1RF sucralfate 1 gram tablet 1 g PO QACHS Qty: 120 0RF meclizine [meclizine] 25 mg tablet 25 mg PO 4X/DAY PRN PRN (Reason: Dizziness) Qty: 20 0RF Primary Care Provider: Raghav Richard Referrals: Raghav Richard MD [Primary Care Provider] - 3-5 Days Disposition Disposition: Home, Self Care
[2022-08-25 23:57] VITALS: BP 118/55; PULSE 60; RESP 16; O2SAT 98
== END 2022-08-25 23:58 | disposition home or self-care (01) ==
PROVIDERS: Emergency Provider Emergency Medicine; PCP Family Medicine; Visit Provider Emergency Medicine
DX: I88.0 Nonspecific mesenteric lymphadenitis (principal); F17.290 Nicotine dependence, other tobacco product, uncomplicated
CPT/HCPCS: 74177; 80053; 83690; 85025; 96374; 96375; 99283; Q9967; A4216; J2405